=== PATIENT | male | born 1960 | race Caucasian/White ===

== ENCOUNTER 2018-07-10 06:01 | Day surgery (SDC) | payer BC ==
[~2018-07-10 06:01] MED LIST: Lactated Ringers 1,000 ML IV SCH
[2018-07-10] MEDS ORDERED: Ketamine HCl 50 MG/ML IV ONE (06:02)
[2018-07-10] MEDS ORDERED: DIPRIVAN 200 MG/20 ML IV ONE (06:02)
[2018-07-10 08:12] VITALS: PULSE 89; O2SAT 95
[2018-07-10 08:28] VITALS: BP 130/65
--- NOTE | 2018-07-10 09:41 | OP ---
SURGERY DATE/TIME: 07/10/201815 PREOPERATIVE DIAGNOSIS: Screening colonoscopy. POSTOPERATIVE DIAGNOSIS: Normal colon. PROCEDURE: Colonoscopy. SURGEON: Tulio Magallon M.D. ANESTHESIA: MAC by Gamaliel Zepeda CRNA. ESTIMATED BLOOD LOSS: None. SPECIMENS: None. DESCRIPTION OF PROCEDURE: After informed written consent was obtained, the patient was taken to the endoscopy suite. He underwent monitored anesthesia and digital rectal exam was performed and showing no internal lesions. The scope was then inserted into the rectum and sequentially the entire colonic mucosa was traversed. The level of cecum was reached and verified with direct visualization of ileocecal valve. Upon withdrawal careful mucosal inspection revealed no gross abnormalities. Prior to withdrawal retroflexion was performed and showed no internal lesions. The scope was removed and the patient was transferred to the recovery room in good condition.
== END 2018-07-10 08:37 | disposition home or self-care (01) ==
LOC: SDC 06:01
PROVIDERS: ATTEND Family Medicine
DX: Z12.11 Encounter for screening for malignant neoplasm of colon (principal); E11.9 Type 2 diabetes mellitus without complications; I10 Essential (primary) hypertension
CPT/HCPCS: 82962; J2704

== ENCOUNTER 2023-08-01 18:45 | Emergency (ER) | payer OTHER ==
[2023-08-01] MEDS: BABY ASPIRIN 81 MG CHEW PO ONE (18:50)
[2023-08-01] MEDS ORDERED: Nitrostat 0.4 MG (ED) SL ONE (18:52)
[2023-08-01] MEDS: Nitrostat 0.4 MG (ED) SL ONE (18:52)
[2023-08-01] MEDS ORDERED: BABY ASPIRIN 81 MG CHEW ONE (18:52)
[2023-08-01] MEDS ORDERED: MORPHINE SULFATE 4 MG INJ ONE ×2 (18:57→19:35)
[2023-08-01] MEDS ORDERED: Zofran 4 MG/2 ML VIAL ONE ×2 (18:57→20:07)
[2023-08-01] MEDS: Zofran 4 MG/2 ML VIAL IV ONE ×2 (18:58→20:15)
[2023-08-01] MEDS: MORPHINE SULFATE 4 MG INJ IV ONE ×2 (18:58→19:36)
[2023-08-01] MEDS: NITRO-BID 2% UD PACKETS TOP ONE (19:09)
[2023-08-01 19:15] VITALS: TEMP 97
--- NOTE | 2023-08-01 19:15 | ERPHSYRPT ---
- History of Present Illness Time Seen by Provider: 08/01/23 18:51 Historian: patient, family Exam Limitations: no limitations Physician History: 63 years old male with history of diabetes mellitus presented in the ER with sudden onset substernal chest pain moderate to severe sharp with radiation to the left arm with tingling sensation. Reports associated palpitations and mild shortness of breath. Patient denies any aggravating or relieving factors. It started almost an hour ago and is continuous. Patient is diaphoretic on presentation. EKG is sinus rhythm with no definite ST elevations. He is given aspirin, nitro and morphine, on reevaluation feeling better after few minutes. Chest pain workup is ordered. Denies any history of coronary artery disease. Aspirin Treatment Today: 81 mg x 1 Allergies/Adverse Reactions: No Known Drug Allergies Allergy (Verified 08/01/23 18:56) Home Medications: Atorvastatin Calcium [Lipitor] 20 mg PO DAILY 07/10/18 [History] Calcium Carbonate/Magnesium Ox [Super Nikita-Mag Tablet] 1 each PO DAILY 07/10/18 [History] Diclofenac Sodium 75 mg PO DAILY 07/10/18 [History] Empagliflozin [Jardiance] 10 mg PO DAILY 07/10/18 [History] Glucosam/Chondr/Collagn/Hyalur [Glucosamine & Chondroitin Cap] 1 each PO DAILY 07/10/18 [History] Loratadine [Alavert] 10 mg PO DAILY 07/10/18 [History] Losartan/Hydrochlorothiazide [Losartan-Hctz 100-12.5 mg Tab] 1 each PO DAILY 07/10/18 [History] Metformin HCl [Metformin ER Osmotic] 1,000 mg PO BID 07/10/18 [History] Metoprolol Succinate 50 mg PO DAILY 07/10/18 [History] Omeprazole 40 mg PO DAILY 07/10/18 [History] - Review of Systems Constitutional: No Symptoms Eyes: No Symptoms Ears, Nose, & Throat: No Symptoms Respiratory: Dyspnea Cardiac: Chest Pain, Palpitations Abdominal/Gastrointestinal: No Symptoms Genitourinary Symptoms: No Symptoms Musculoskeletal: No Symptoms Skin: No Symptoms Neurological: No Symptoms Psychological: No Symptoms Endocrine: No Symptoms Hematologic/Lymphatic: No Symptoms Immunological/Allergic: No Symptoms - Past Medical History Pertinent Past Medical History: Yes Neurological History: TIA ENT History: No Pertinent History Cardiac History: Hypertension Respiratory History: Sleep Apnea Endocrine Medical History: Diabetes Type II Musculoskeletal History: No Pertinent History GI Medical History: GERD History: No Pertinent History Psycho-Social History: No Pertinent History Male Reproductive Disorders: No Pertinent History - Past Surgical History Past Surgical History: Yes Neuro Surgical History: No Pertinent History Cardiac: No Pertinent History Respiratory: No Pertinent History Gastrointestinal: No Pertinent History Genitourinary: No Pertinent History Musculoskeletal: Orthopedic Surgery Male Surgical History: No Pertinent History - Social History Smoking Status: Former smoker Drug Use: none - Nursing Vital Signs Nursing Vital Signs: Initial Vital Signs Temperature 97.0 F 08/01/23 18:55 Pulse Rate 94 H 08/01/23 18:55 Respiratory Rate 25 H 08/01/23 18:55 Blood Pressure 169/106 08/01/23 18:55 O2 Sat by Pulse Oximetry 94 L 08/01/23 18:55 Pain Scale Pain Intensity 5 - Physical Exam General Appearance: mild distress, alert Eye Exam: PERRL/EOMI Ears, Nose, Throat Exam: normal ENT inspection Neck Exam: normal inspection, non-tender, supple, full range of motion Respiratory Exam: normal breath sounds, lungs clear Cardiovascular Exam: regular rate/rhythm, normal heart sounds Gastrointestinal/Abdomen Exam: soft, normal bowel sounds, No tenderness Back Exam: normal inspection Extremity Exam: normal inspection, normal range of motion Neurologic Exam: alert, oriented x 3, cooperative Skin Exam: normal color SpO2 Interpretation: normal SpO2: 97 O2 Delivery: Room Air - Course EKG Interpreted by Me: RATE (93), Sinus Rhythm, NORMAL AXIS, NORMAL INTERVALS, Non-specific ST Changes, Other (Acute EKG 1923. Rate 88 bpm, normal axis, normal intervals, nonspecific ST changes and anterolateral leads;;;; ) Rhythm Strip: Rate (EKG; 2100: 91 bpm, normal axis, normal intervals, slightly more pronounced ST changes suggesting some elevation in enterolateral leads.) Ordered Tests: Medication Summary Discontinued Medications Generic Name Dose Route Start Last Admin Trade Name Freq PRN Reason Stop Dose Admin Aspirin 324 mg 08/01/23 18:50 08/01/23 18:50 Aspirin 81 Mg Tab.Chew PO 08/01/23 18:51 324 mg STAT ONE Administration Aspirin Confirm 08/01/23 18:52 Aspirin 81 Mg Tab.Chew Administered 08/01/23 18:53 Dose 243 mg .ROUTE .STK-MED ONE Heparin Sodium (Beef Lung) 5,000 unit 08/01/23 22:04 08/01/23 22:11 Heparin 5000 Units/0.5 Ml 5,000 Unit/0.5 Ml Syr IV 08/01/23 22:05 5,000 unit STAT ONE Administration Heparin Sodium (Beef Lung) Confirm 08/01/23 22:11 Heparin 5000 Units/0.5 Ml 5,000 Unit/0.5 Ml Syr Administered 08/01/23 22:12 Dose 5,000 unit .ROUTE .STK-MED ONE Hydromorphone HCl 1 mg 08/01/23 20:49 08/01/23 20:55 Hydromorphone 1 Mg/1ml Inj IV 08/01/23 20:50 1 mg STAT ONE Administration Hydromorphone HCl Confirm 08/01/23 20:53 Hydromorphone 1 Mg/1ml Inj Administered 08/01/23 20:54 Dose 1 mg .ROUTE .STK-MED ONE Sodium Chloride 1,000 mls @ 125 mls/hr 08/01/23 19:30 08/01/23 20:00 Sodium Chloride 0.9% 1000 Ml IV 08/31/23 19:29 999 mls/hr .Q8H MACI Infusion Sodium Chloride 1,000 mls @ 999 mls/hr 08/01/23 20:19 08/01/23 20:24 Sodium Chloride 0.9% 1000 Ml IV 08/01/23 21:19 Not Given .Q1H1M STA Sodium Chloride 1,000 mls @ 999 mls/hr 08/01/23 20:45 08/01/23 21:00 Sodium Chloride 0.9% 1000 Ml IV 08/01/23 21:45 999 mls/hr .Q1H1M STA Administration Nitroglycerin/Dextrose 250 mls @ 1.5 mls/hr 08/01/23 21:43 08/01/23 22:06 Ntg 0.2mg/Ml In D5w Glass IV 08/31/23 21:42 5 mcg/min .Q24H PRN 1.5 mls/hr CHEST PAIN Administration Protocol 5 MCG/MIN Sodium Chloride Confirm 08/01/23 19:28 Sodium Chloride 0.9% 1000 Ml Administered 08/01/23 19:29 Dose 1,000 mls @ ud .ROUTE .STK-MED ONE Sodium Chloride Confirm 08/01/23 20:46 Sodium Chloride 0.9% 1000 Ml Administered 08/01/23 20:47 Dose 1,000 mls @ ud .ROUTE .STK-MED ONE Nitroglycerin/Dextrose Confirm 08/01/23 21:53 Ntg 0.2mg/Ml In D5w Glass Administered 08/01/23 21:54 Dose 250 mls @ ud IV .STK-MED ONE Nitroglycerin/Dextrose Confirm 08/01/23 22:04 Ntg 0.2mg/Ml In D5w Glass Administered 08/01/23 22:05 Dose 250 mls @ ud IV .STK-MED ONE Metoclopramide HCl 10 mg 08/01/23 21:48 08/01/23 21:59 Metoclopramide Hcl 10 Mg/2 Ml Vial IV 08/01/23 21:49 10 mg STAT ONE Administration Metoclopramide HCl Confirm 08/01/23 21:53 Metoclopramide Hcl 10 Mg/2 Ml Vial Administered 08/01/23 21:54 Dose 10 mg .ROUTE .STK-MED ONE Morphine Sulfate 4 mg 08/01/23 18:55 08/01/23 18:58 Morphine Sulfate 4 Mg/Ml Injection IV 08/01/23 18:56 4 mg STAT ONE Administration Morphine Sulfate Confirm 08/01/23 18:57 Morphine Sulfate 4 Mg/Ml Injection Administered 08/01/23 18:58 Dose 4 mg .ROUTE .STK-MED ONE Morphine Sulfate 4 mg 08/01/23 19:29 08/01/23 19:36 Morphine Sulfate 4 Mg/Ml Injection IV 08/01/23 19:30 4 mg STAT ONE Administration Morphine Sulfate Confirm 08/01/23 19:35 Morphine Sulfate 4 Mg/Ml Injection Administered 08/01/23 19:36 Dose 4 mg .ROUTE .STK-MED ONE Nitroglycerin 1 gm 08/01/23 18:50 08/01/23 19:09 Nitroglycerin 1 Gm Packet TOP 08/01/23 18:51 Not Given STAT ONE Nitroglycerin Confirm 08/01/23 18:52 Nitroglycerin 0.4 Mg (Ed) 0.4 Mg Tab.Subl Administered 08/01/23 18:53 Dose 0.4 mg SL .STK-MED ONE Nitroglycerin 0.4 mg 08/01/23 18:50 08/01/23 18:52 Nitroglycerin 0.4 Mg (Ed) 0.4 Mg Tab.Subl SL 08/01/23 18:51 0.4 mg STAT ONE Administration Ondansetron HCl 4 mg 08/01/23 18:55 08/01/23 18:58 Ondansetron Hcl 4 Mg/2 Ml Vial IV 08/01/23 18:56 4 mg STAT ONE Administration Ondansetron HCl Confirm 08/01/23 18:57 Ondansetron Hcl 4 Mg/2 Ml Vial Administered 08/01/23 18:58 Dose 4 mg .ROUTE .STK-MED ONE Ondansetron HCl Confirm 08/01/23 20:07 Ondansetron Hcl 4 Mg/2 Ml Vial Administered 08/01/23 20:08 Dose 4 mg .ROUTE .STK-MED ONE Ondansetron HCl 4 mg 08/01/23 20:27 08/01/23 20:15 Ondansetron Hcl 4 Mg/2 Ml Vial IV 08/01/23 20:28 4 mg STAT ONE Administration Lab/Rad Data: Laboratory Result Diagrams 08/01/23 19:00 08/01/23 19:00 Laboratory Results 08/01/23 08/01/23 08/01/23 Range/Units 22:12 21:27 20:00 WBC (4.0-10.5) x10^3/uL RBC (4.1-5.6) x10^6/uL Hgb (12.5-18.0) g/dL Hct (42-50) % MCV (78-100) fL MCH (26-32) pg MCHC (32-36) g/dL RDW (11.5-14.0) % Plt Count (150-450) x10^3/uL MPV (7.5-11.0) fL Gran % (36.0-66.0) % Immature Gran % (Auto) (0.00-0.4) % Nucleat RBC Rel Count (0.00-0.1) % Eos # (Auto) (0-0.5) x10^3/uL Immature Gran # (Auto) (0.00-0.03) x10^3u/L Absolute Lymphs (auto) (1.0-4.6) x10^3/uL Absolute Monos (auto) (0.0-1.3) x10^3/uL Absolute Nucleated RBC (0.00-0.01) x10^3u/L Lymphocytes % (24.0-44.0) % Monocytes % (0.0-12.0) % Eosinophils % (0.00-5.0) % Basophils % (0.0-0.4) % Absolute Granulocytes (1.4-6.9) x10^3/uL Basophils # (0-0.4) x10^3/uL PT (9.4-12.5) SECONDS INR (0.8-3.0) APTT (25.1-36.5) SECONDS D-Dimer (0.0-0.50) mg/L pO2/FiO2 Ratio % VBG pH (7.32-7.42) VBG pCO2 at Pat Temp (42-55) mm/Hg VBG pO2 at Pat Temp (25-40) mm/Hg VBG HCO3 (22-28) meq/L VBG O2 Sat (Buster) (95-100) VBG Base Excess (-2.0-2.0) VBG Hemoglobin VBG Carboxyhemoglobin (0.0-6.9) % T HGB POC Potassium (3.5-5.1) Sodium (135-145) mmol/L Potassium (3.5-5.1) mmol/L Chloride (98-107) mmol/L Carbon Dioxide (22-30) mmol/L Anion Gap (5-15) MEQ/L BUN (9-20) mg/dL Creatinine (0.66-1.25) mg/dL Estimated GFR ML/MIN Glucose (74-106) mg/dL POC Glucometer (74 to 106) mg/dL Lactic Acid 3.2 H (0.4-2.0) Calcium (8.4-10.2) mg/dL Total Bilirubin (0.2-1.3) mg/dL AST (17-59) U/L ALT (0-50) U/L Alkaline Phosphatase (38-126) U/L Troponin I 0.120 H* (0.000-0.033) ng/mL NT-Pro-B Natriuret Pep (<300) pg/mL Serum Total Protein (6.3-8.2) g/dL Albumin (3.5-5.0) g/dL Lipase 186 (23-300) U/L 08/01/23 08/01/23 08/01/23 Range/Units 19:55 19:55 19:00 WBC (4.0-10.5) x10^3/uL RBC (4.1-5.6) x10^6/uL Hgb (12.5-18.0) g/dL Hct (42-50) % MCV (78-100) fL MCH (26-32) pg MCHC (32-36) g/dL RDW (11.5-14.0) % Plt Count (150-450) x10^3/uL MPV (7.5-11.0) fL Gran % (36.0-66.0) % Immature Gran % (Auto) (0.00-0.4) % Nucleat RBC Rel Count (0.00-0.1) % Eos # (Auto) (0-0.5) x10^3/uL Immature Gran # (Auto) (0.00-0.03) x10^3u/L Absolute Lymphs (auto) (1.0-4.6) x10^3/uL Absolute Monos (auto) (0.0-1.3) x10^3/uL Absolute Nucleated RBC (0.00-0.01) x10^3u/L Lymphocytes % (24.0-44.0) % Monocytes % (0.0-12.0) % Eosinophils % (0.00-5.0) % Basophils % (0.0-0.4) % Absolute Granulocytes (1.4-6.9) x10^3/uL Basophils # (0-0.4) x10^3/uL PT (9.4-12.5) SECONDS INR (0.8-3.0) APTT (25.1-36.5) SECONDS D-Dimer (0.0-0.50) mg/L pO2/FiO2 Ratio 21.0 % VBG pH 7.55 H* (7.32-7.42) VBG pCO2 at Pat Temp 27 L (42-55) mm/Hg VBG pO2 at Pat Temp 52 H (25-40) mm/Hg VBG HCO3 23.6 (22-28) meq/L VBG O2 Sat (Buster) 86.6 L (95-100) VBG Base Excess 2.6 H (-2.0-2.0) VBG Hemoglobin 15.7 VBG Carboxyhemoglobin 2.5 (0.0-6.9) % T HGB POC Potassium 4.7 (3.5-5.1) Sodium (135-145) mmol/L Potassium (3.5-5.1) mmol/L Chloride (98-107) mmol/L Carbon Dioxide (22-30) mmol/L Anion Gap (5-15) MEQ/L BUN (9-20) mg/dL Creatinine (0.66-1.25) mg/dL Estimated GFR ML/MIN Glucose (74-106) mg/dL POC Glucometer (74 to 106) mg/dL Lactic Acid 4.0 H (0.4-2.0) Calcium (8.4-10.2) mg/dL Total Bilirubin (0.2-1.3) mg/dL AST (17-59) U/L ALT (0-50) U/L Alkaline Phosphatase (38-126) U/L Troponin I < 0.012 (0.000-0.033) ng/mL NT-Pro-B Natriuret Pep < 20.0 (<300) pg/mL Serum Total Protein (6.3-8.2) g/dL Albumin (3.5-5.0) g/dL Lipase (23-300) U/L 08/01/23 08/01/23 08/01/23 Range/Units 19:00 19:00 19:00 WBC 10.8 H (4.0-10.5) x10^3/uL RBC 4.99 (4.1-5.6) x10^6/uL Hgb 14.7 (12.5-18.0) g/dL Hct 42.3 (42-50) % MCV 84.8 (78-100) fL MCH 29.5 (26-32) pg MCHC 34.8 (32-36) g/dL RDW 13.0 (11.5-14.0) % Plt Count 320 (150-450) x10^3/uL MPV 10.9 (7.5-11.0) fL Gran % 43.8 (36.0-66.0) % Immature Gran % (Auto) 0.4 (0.00-0.4) % Nucleat RBC Rel Count 0.0 (0.00-0.1) % Eos # (Auto) 0.36 (0-0.5) x10^3/uL Immature Gran # (Auto) 0.04 H (0.00-0.03) x10^3u/L Absolute Lymphs (auto) 4.54 (1.0-4.6) x10^3/uL Absolute Monos (auto) 1.03 (0.0-1.3) x10^3/uL Absolute Nucleated RBC 0.00 (0.00-0.01) x10^3u/L Lymphocytes % 42.2 (24.0-44.0) % Monocytes % 9.6 (0.0-12.0) % Eosinophils % 3.3 (0.00-5.0) % Basophils % 0.7 (0.0-0.4) % Absolute Granulocytes 4.70 (1.4-6.9) x10^3/uL Basophils # 0.08 (0-0.4) x10^3/uL PT 9.8 (9.4-12.5) SECONDS INR 0.89 (0.8-3.0) APTT 23.2 L (25.1-36.5) SECONDS D-Dimer 0.32 (0.0-0.50) mg/L pO2/FiO2 Ratio % VBG pH (7.32-7.42) VBG pCO2 at Pat Temp (42-55) mm/Hg VBG pO2 at Pat Temp (25-40) mm/Hg VBG HCO3 (22-28) meq/L VBG O2 Sat (Buster) (95-100) VBG Base Excess (-2.0-2.0) VBG Hemoglobin VBG Carboxyhemoglobin (0.0-6.9) % T HGB POC Potassium (3.5-5.1) Sodium 139 (135-145) mmol/L Potassium 3.7 (3.5-5.1) mmol/L Chloride 102 (98-107) mmol/L Carbon Dioxide 17 L (22-30) mmol/L Anion Gap 23.3 H (5-15) MEQ/L BUN 24 H (9-20) mg/dL Creatinine 1.46 H (0.66-1.25) mg/dL Estimated GFR 53.7 ML/MIN Glucose 260 H (74-106) mg/dL POC Glucometer (74 to 106) mg/dL Lactic Acid (0.4-2.0) Calcium 10.9 H (8.4-10.2) mg/dL Total Bilirubin 0.90 (0.2-1.3) mg/dL AST 29 (17-59) U/L ALT 31 (0-50) U/L Alkaline Phosphatase 115 (38-126) U/L Troponin I (0.000-0.033) ng/mL NT-Pro-B Natriuret Pep (<300) pg/mL Serum Total Protein 9.0 H (6.3-8.2) g/dL Albumin 5.1 H (3.5-5.0) g/dL Lipase (23-300) U/L // Range/Units 18:51 WBC (4.0-10.5) x10^3/uL RBC (4.1-5.6) x10^6/uL Hgb (12.5-18.0) g/dL Hct (42-50) % MCV (78-100) fL MCH (26-32) pg MCHC (32-36) g/dL RDW (11.5-14.0) % Plt Count (150-450) x10^3/uL MPV (7.5-11.0) fL Gran % (36.0-66.0) % Immature Gran % (Auto) (0.00-0.4) % Nucleat RBC Rel Count (0.00-0.1) % Eos # (Auto) (0-0.5) x10^3/uL Immature Gran # (Auto) (0.00-0.03) x10^3u/L Absolute Lymphs (auto) (1.0-4.6) x10^3/uL Absolute Monos (auto) (0.0-1.3) x10^3/uL Absolute Nucleated RBC (0.00-0.01) x10^3u/L Lymphocytes % (24.0-44.0) % Monocytes % (0.0-12.0) % Eosinophils % (0.00-5.0) % Basophils % (0.0-0.4) % Absolute Granulocytes (1.4-6.9) x10^3/uL Basophils # (0-0.4) x10^3/uL PT (9.4-12.5) SECONDS INR (0.8-3.0) APTT (25.1-36.5) SECONDS D-Dimer (0.0-0.50) mg/L pO2/FiO2 Ratio % VBG pH (7.32-7.42) VBG pCO2 at Pat Temp (42-55) mm/Hg VBG pO2 at Pat Temp (25-40) mm/Hg VBG HCO3 (22-28) meq/L VBG O2 Sat (Buster) (95-100) VBG Base Excess (-2.0-2.0) VBG Hemoglobin VBG Carboxyhemoglobin (0.0-6.9) % T HGB POC Potassium (3.5-5.1) Sodium (135-145) mmol/L Potassium (3.5-5.1) mmol/L Chloride (98-107) mmol/L Carbon Dioxide (22-30) mmol/L Anion Gap (5-15) MEQ/L BUN (9-20) mg/dL Creatinine (0.66-1.25) mg/dL Estimated GFR ML/MIN Glucose (74-106) mg/dL POC Glucometer 266 H (74 to 106) mg/dL Lactic Acid (0.4-2.0) Calcium (8.4-10.2) mg/dL Total Bilirubin (0.2-1.3) mg/dL AST (17-59) U/L ALT (0-50) U/L Alkaline Phosphatase (38-126) U/L Troponin I (0.000-0.033) ng/mL NT-Pro-B Natriuret Pep (<300) pg/mL Serum Total Protein (6.3-8.2) g/dL Albumin (3.5-5.0) g/dL Lipase (23-300) U/L - Progress Progress: improved, re-examined Air Movement: good Progress Note: 08/01/23 21:55 63-year-old is evaluated in the ER for severe chest pain with diaphoresis. Initial EKG showed sinus rhythm with no obvious ST elevation but some nonspecific changes in the anterolateral leads. Has some T wave inversion in the inferior leads. Is given symptomatic treatment along with aspirin and nitro with some improvement and later on given Dilaudid but still have some discomfort. Patient did have couple of episodes of vomiting while in the ER with no belly tenderness. Has normal white count, initial troponin normal. Does have ESTEFANI with a baseline creatinine of 1 and today is 1.4 with a gap of 23 and bicarb of 17 and a glucose of 266. Patient has lactate of 4.0 and pH 7.55. Patient is given 2 L bolus and have obtained CTA chest/abdomen/pelvis which is negative for pulmonary embolism, no dissection/aneurysm, abdominal CT showed small hiatal hernia and some mesenteric node enlargement but no other acute findings. Patient has risk factors for CAD and heart score of> 4, do not have cardiology services here, discussed with patient and family the results of workup and they would like to go to place where there is a cardiology available. I have called [facility] transfer center, discussed with Dr. Martin, reviewed history, workup and agreed with transfer. Patient is also started on nitro drip. Complexity of problems addressed is acute severe complicated. Critical care time of more than 75 minutes. Complexity of data reviewed and analyzed is moderate to severe test ordered reviewed and analyzed and correlated clinically with a history and physical exam. Risk of complication and/or risk of morbidity/mortality of patient management is moderate to severe. EKGs were repeated couple of times with no significant changes from previous. 08/01/23 22:21 Has elevated second troponin 0.12. He is given heparin bolus after discussion with patient about risks/benefits/absolute contraindications. Patient is feeling better on reevaluation with nitro drip. Blood Culture(s) Obtained: Yes Antibiotics given: No Discussed with Dr.: Other (Dr. Martin [facility][1]) Will see patient in: ED Counseled pt/family regarding: lab results, diagnosis, rad results Medical Desision Making - Independent Historian Additional History obtained from: Spouse - Discussion of managment Care discussed with:: on-call "doc" Reviewed:: Test results Agreed on:: Treatment plan Will see patient: in ED - Diagnostic Testing Diagnostic test were ordered, analyzed, and reviewed by me: Yes Radiological Interpretation: Interpreted by me, Reviewed by me - Risk of complications The pt has a mod risk of morbidity or mortality based on: Need for prescription drug management The pt has a high risk of morbidity or mortality based on: Drug therapy requiring intensive monitoring for toxicity, Decision regarding hospitilization or escalation of hosp level of care - Departure Departure Disposition: Transfer Clinical Impression: NSTEMI (non-ST elevated myocardial infarction), ESTEFANI (acute kidney injury), Lactic acidosis Condition: Stable Critical Care Time: Yes Critical Care Time(excluding separately billable procedures): Critical 75-104 mins Referrals: JINA SANDHU MD [Primary Care Provider] - Follow up/PCP as directed
[2023-08-01 19:16] LABS: BASOPHIL % 0.7 % (0.0-0.4); Basophil (Absolute #) 0.08 x10^3/uL (0-0.4); Eosinophil % 3.3 % (0.00-5.0); Eosinophil (Absolute #) 0.36 x10^3/uL (0-0.5); Hematocrit 42.3 % (42-50); Hemoglobin 14.7 g/dL (12.5-18.0); IMMATURE GRAN # 0.04 x10^3u/L (0.00-0.03); IMMATURE GRAN % 0.4 % (0.00-0.4); Lymphocyte (Absolute #) 4.54 x10^3/uL (1.0-4.6); Lymphocytes % 42.2 % (24.0-44.0); Mean Cell Volume 84.8 fL (78-100); Mean Corpuscular Hemoglobin 29.5 pg (26-32); Mean Corpuscular Hgb Concent. 34.8 g/dL (32-36); Mean Platelet Volume 10.9 fL (7.5-11.0); Monocyte (Absolute #) 1.03 x10^3/uL (0.0-1.3); Monocytes % 9.6 % (0.0-12.0); Neutrophil % 43.8 % (36.0-66.0); Platelet Count 320 x10^3/uL (150-450); Red Blood Count 4.99 x10^6/uL (4.1-5.6); White Blood Count 10.8 x10^3/uL (4.0-10.5)
[2023-08-01] MEDS ORDERED: Sodium Chloride 0.9% 1000 ML 1,000 ML ONE ×2 (19:28→20:46)
[2023-08-01] MEDS: Sodium Chloride 0.9% 1000 ML 1,000 ML IV SCH (19:29)
[2023-08-01 19:30] LABS: ALBUMIN 5.1 g/dL (3.5-5.0); ANION GAP 23.3 MEQ/L (5-15); BILIRUBIN,TOTAL 0.9 mg/dL (0.2-1.3); Calcium 10.9 mg/dL (8.4-10.2); Creatinine 1 1.46 mg/dL (0.66-1.25); EST GLOMERULAR FILTRATION RATE 53.7 ML/MIN; Potassium 3.7 mmol/L (3.5-5.1)
[2023-08-01 19:32] LABS: D-DIMER QUANTITATIVE 0.32 mg/L (0.0-0.50); INR 0.89 (0.8-3.0); PROTIME 9.8 SECONDS (9.4-12.5); PTT 23.2 SECONDS (25.1-36.5)
[2023-08-01 19:42] LABS: NT PRO BNPII < 20.0 pg/mL (<300); TROPONIN < 0.012 ng/mL (0.000-0.033)
[2023-08-01 20:01] LABS: VBG BASE EXCESS 2.6 (-2.0-2.0); VBG CARBOXYHEMOGLOBIN 2.5 % T HGB (0.0-6.9); VBG HCO3- 23.6 meq/L (22-28); VBG HEMOGLOBIN 15.7; VBG O2 SATURATION 86.6 (95-100); VBG POTASSIUM 4.7 (3.5-5.1); VBG pH 7.55 (7.32-7.42)
[2023-08-01] MEDS: Sodium Chloride 0.9% 1000 ML 1,000 ML IV STA ×2 (20:24→21:00)
[2023-08-01] MEDS ORDERED: Hydromorphone 1 mg/ml Injection ONE (20:53)
[2023-08-01] MEDS: Hydromorphone 1 mg/ml Injection IV ONE (20:55)
[2023-08-01 21:15] VITALS: RESP 16
[2023-08-01] MEDS ORDERED: Reglan 10 MG/2 ML ONE (21:53)
[2023-08-01] MEDS ORDERED: Ntg 0.2MG/Ml in D5W GLASS*** 250 ML IV ONE ×2 (21:53→22:04)
[2023-08-01 21:55] VITALS: O2SAT 97
[2023-08-01] MEDS: Reglan 10 MG/2 ML IV ONE (21:59)
[2023-08-01] MEDS: Ntg 0.2MG/Ml in D5W GLASS*** 250 ML IV PRN (22:06)
[2023-08-01 22:09] VITALS: BP 156/98; PULSE 91
[2023-08-01] MEDS: HEPARIN 5000 UNITS/0.5 ML (HIGH RISK MED) IV ONE (22:11)
[2023-08-01] MEDS ORDERED: HEPARIN 5000 UNITS/0.5 ML (HIGH RISK MED) ONE (22:11)
--- NOTE | 2023-08-02 08:45 | XRAY ---
Indication: Chest pain. Pulmonary embolus. Aortic dissection. Multiple contiguous axial images obtained through the chest using 80 cc Isovue 370 contrast and PE protocol. Comparison: None Good opacification of the pulmonary arteries to includes the lobar and segmental branches. No pulmonary embolus. Heart not enlarged. Aorta is normal in course and caliber. A few tiny right hilar calcified nodes. No pathologic mediastinal/hilar lymphadenopathy. Small hiatal hernia. Lungs demonstrates 5 mm right middle lobe (image 24), 9 mm right lower lobe (image 26), 5 mm left lower lobe (image 26), and 3 mm left upper lobe (image 13) noncalcified nodules. Nodules are indeterminant. Mild bilateral dependent atelectasis. No infiltrate, effusion, or pneumothorax. Bony thorax intact with mild degenerative changes throughout the spine. CT abdomen/pelvis reported separately. Impression: 1. Negative pulmonary embolus. No acute cardiopulmonary abnormalities. 2. Indeterminant bilateral noncalcified micronodules. Outside comparison studies recommended if available. If not, follow-up per Fleischner guidelines. 3. Chronic findings including hiatal hernia, degenerative spondylosis, and old granulomatous disease.
--- NOTE | 2023-08-02 08:53 | XRAY ---
Indication: Chest pain. Comparison: November 02, 2016 Portable chest remains inflated and clear. Heart and mediastinal structures within normal limits. Bony thorax intact again with mild degenerative changes and minimal dextroscoliosis. Impression: Continued nonacute chest with chronic bony findings.
--- NOTE | 2023-08-02 09:05 | XRAY ---
Indication: Abdomen pain and nausea. Multiple contiguous axial images obtained through the abdomen and pelvis using 80 cc Isovue 370 contrast. Comparison: None CT chest reported separately. Noncontrasted stomach and bowel loops appear nonobstructed with normal appendix. There are multiple enlarged mesenteric root lymph nodes, largest 2.0 x 3.2 cm interposed between portal vein and IVC. Multiple tiny periaortic nodes, none pathologically enlarged. Spleen is enlarged measuring 14.2 cm. No free fluid/air. Remaining liver, gallbladder, pancreas, spleen, adrenal glands, kidneys, ureters, bladder, and aorta are unremarkable. Osseous structures intact with minimal degenerative changes throughout the spine. Small fatty right inguinal hernia. No pathologic inguinal lymphadenopathy. Impression: 1. Mesenteric root lymphadenopathy. Rule out primary versus metastatic malignancy. 2. Incidental splenomegaly, multilevel degenerative spondylosis, and fatty right inguinal hernia. 3. Remaining CT abdomen/pelvis with contrast exam is negative.
== END 2023-08-01 22:30 | disposition short-term general hospital (02) ==
LOC: ED 18:45
DX: I21.4 Non-ST elevation (NSTEMI) myocardial infarction (principal); N17.9 Acute kidney failure, unspecified; E87.20 Acidosis, unspecified; R07.9 Chest pain, unspecified; R00.2 Palpitations; R06.02 Shortness of breath; I10 Essential (primary) hypertension; E11.9 Type 2 diabetes mellitus without complications; Z79.84 Long term (current) use of oral hypoglycemic drugs; Z79.899 Other long term (current) drug therapy
CPT/HCPCS: 36000; 36415; 71045; 71260; 74177; 80053; 82805; 82947; 83605; 83690; 83880; 84484; 85025; 85379; 85610; 85730; 87040; 93005; 93041; 96374; 96375; 99285; 99291; 99292; J1170; J1644; J2270; J2405; A9270-GY

== ENCOUNTER 2023-08-16 10:35 | Emergency (ER) | payer OTHER ==
[2023-08-16 10:58] VITALS: TEMP 98.1
[2023-08-16 11:27] LABS: ANION GAP 18.1 MEQ/L (5-15); Calcium 10.1 mg/dL (8.4-10.2); Creatinine 1 1.91 mg/dL (0.66-1.25); EST GLOMERULAR FILTRATION RATE 38.9 ML/MIN; Potassium 5.5 mmol/L (3.5-5.1)
[2023-08-16] MEDS ORDERED: Sodium Chloride 0.9% 1000 ML 1,000 ML ONE (12:15)
[2023-08-16] MEDS: Sodium Chloride 0.9% 1000 ML 1,000 ML IV STA (12:16)
[2023-08-16 12:18] LABS: BASOPHIL % 0.7 % (0.2-1.2); Basophil (Absolute #) 0.06 x10^3/uL (0.01-0.08); Eosinophil % 4.8 % (0.8-7.0); Hematocrit 40.1 % (40.1-51.0); Hemoglobin 13.3 g/dL (13.7-17.5); IMMATURE GRAN # 0.03 x10^3u/L (0.001-0.031); IMMATURE GRAN % 0.4 % (0.001-0.429); Lymphocyte (Absolute #) 1.42 x10^3/uL (1.32-3.57); Lymphocytes % 17.2 % (21.8-53.1); Mean Cell Volume 88.1 fL (79.0-92.2); Mean Corpuscular Hemoglobin 29.2 pg (25.7-32.2); Mean Corpuscular Hgb Concent. 33.2 g/dL (32.3-36.5); Mean Platelet Volume 10.5 fL (9.4-12.4); Monocyte (Absolute #) 0.75 x10^3/uL (0.30-0.82); Monocytes % 9.1 % (5.3-12.2); Neutrophil % 67.8 % (34.0-67.9); Platelet Count 377 x10^3/uL (163-337); Red Blood Count 4.55 x10^6/uL (4.63-6.08); White Blood Count 8.3 x10^3/uL (4.23-9.07)
[2023-08-16 12:25] LABS: ADD URINE CULTURE? NO (NO); Appearance Clear (Clear); Bacteria None Seen /HPF (None Seen); Bilirubin Negative (Negative); Blood Negative (Negative); Epithelial Cells None Seen /HPF (None Seen); Glucose, Urine 500 mg/dL (Negative); Hyaline Casts NONE SEEN /LPF (0-2); Ketones Negative (Negative); Leukocyte Esterase Negative (Negative); Nitrite Negative (Negative); Protein,Urine Dip Trace (Negative); RBC 0-2 /HPF (0-5); Urobilinogen 0.2 mg/dL (0.2); WBC 0-2 /HPF (0-5)
[2023-08-16 15:01] VITALS: BP 120/80; PULSE 67; RESP 18; O2SAT 96
--- NOTE | 2023-08-16 15:15 | ERPHSYRPT ---
- History of Present Illness Time Seen by Provider: 08/16/23 10:46 Source: patient Exam Limitations: no limitations Patient Subjective Stated Complaint: C/O K+ level 6.3. Patient indicates that he went to see Dr. Sandhu yesterday for a routine follow-up appointment following an NV on 08/01/23. Lab draw from yesterday indicates at K+ level of 6.3. Triage Nursing Assessment: Patient ambulated back to ER without difficulties. No SOB. He is alert and oriented. Life vest in place. Skin tone normal. Physician History: Patient is here with abnormal lab values. Patient recently had an NSTEMI and was discharged from [facility] on 08/07/2023. Patient recently seen in the [place] emergency department, diagnosed with NSTEMI, transferred to [facility]. There he underwent heart catheterization. Per the patient, heart catheterization was unsuccessful he is now wearing a LifeVest. Patient had routine lab work done yesterday with his PCP, Dr. Sandhu at that point in time he was found to have hyperkalemia and elevated creatinine. Therefore, he arrives to the emergency department today for repeat lab check. He is otherwise asymptomatic, is not having any chest pain, shortness of breath, nausea, vo miting. No other anginal equivalents. States he has been doing well since his NV. States that he has not seen his media consultant who is Dr. Vito Jain. Allergies/Adverse Reactions: No Known Drug Allergies Allergy (Verified 08/16/23 10:49) Home Medications: Aspirin EC 81 mg [Ecotrin 81 mg] 81 mg PO DAILY 08/16/23 [History] Atorvastatin Calcium [Lipitor] 80 mg PO HS 08/16/23 [History] Carvedilol 12.5 mg [Coreg 12.5 mg] 12.5 mg PO BID 08/16/23 [History] Clopidogrel Bisulfate [Plavix] 75 mg PO DAILY 08/16/23 [History] Dapagliflozin Propanediol [Farxiga] 10 mg PO DAILY 08/16/23 [History] Metformin HCl 500 mg [Glucophage 500 MG] 1,000 mg PO BID 08/16/23 [History] Hx Tetanus, Diphtheria Vaccination/Date Given: Yes Hx Influenza Vaccination/Date Given: No Hx Pneumococcal Vaccination/Date Given: No Immunizations Up to Date: Yes Travel Risk - International Travel Have you traveled outside of the country in past 3 weeks: No - Emerging Infectious Disease Are you exhibiting symptoms associated with any current EIDs: No - Past Medical History Pertinent Past Medical History: Yes Neurological History: TIA ENT History: No Pertinent History Cardiac History: High Cholesterol, Hypertension, Myocardial Infarction (NV) Respiratory History: Sleep Apnea Endocrine Medical History: Diabetes Type II Musculoskeletal History: No Pertinent History GI Medical History: GERD History: No Pertinent History Psycho-Social History: No Pertinent History Male Reproductive Disorders: No Pertinent History Other Medical History: Skin CA - Past Surgical History Past Surgical History: Yes Neuro Surgical History: No Pertinent History Cardiac: Cardiac Catheterization Respiratory: No Pertinent History Gastrointestinal: No Pertinent History Genitourinary: No Pertinent History Musculoskeletal: Orthopedic Surgery Male Surgical History: No Pertinent History Other Surgical History: knee orthoscopics, skin CA removals from head - Social History Smoking Status: Former smoker Exposure to second hand smoke: No Drug Use: none - Social Determinants of Health Will the patient participate in the screening: Yes Do you worry about a steady place to live?: No Do you have any problems with any of the following?: No known problems In the past 12 months,have you had to go without utilities?: No Transportation Issues: No Has anyone in your support network made you feel unsafe?: No Have you or anyone in your house had to go without enough: No - Nursing Vital Signs Nursing Vital Signs: Initial Vital Signs Temperature 98.1 F 08/16/23 10:36 Pulse Rate 89 08/16/23 10:36 Respiratory Rate 18 08/16/23 10:36 Blood Pressure 102/64 08/16/23 10:36 O2 Sat by Pulse Oximetry 98 08/16/23 10:36 Pain Scale Pain Intensity 0 - Physical Exam SpO2 Interpretation: normal SpO2: 96 Comments: 08/16/23 15:12 Review of Systems Constitutional: Negative for fever. HENT: Negative for congestion. Respiratory: Negative for shortness of breath. Cardiovascular: Negative for chest pain. Gastrointestinal: Negative for abdominal pain. Genitourinary: Negative for dysuria. Musculoskeletal: Negative for back pain. Skin: Negative for rash. Neurological: Negative for headaches. Psychiatric/Behavioral: Negative for behavioral problems. All other systems reviewed and are negative. Physical Exam Vitals signs and nursing note reviewed. Constitutional: Appearance: Patient is well-developed. HENT: Head: Normocephalic and atraumatic. Eyes: Conjunctiva/sclera: Conjunctivae normal. Neck: Musculoskeletal: Normal range of motion. Trachea: No tracheal deviation. Cardiovascular: Rate and Rhythm: Normal rate. Wearing LifeVest Pulmonary: Effort: Pulmonary effort is normal. No respiratory distress. Abdominal: Palpations: Abdomen is soft. Musculoskeletal: General: No deformity. Skin: General: Skin is warm and dry. Neurological/ Psychiatric: Mental Status: Mental status, behavior, interaction with environment is appropriate for patient's age and condition - Course Nursing assessment & vital signs reviewed: Yes EKG Interpreted by Me: Sinus Rhythm (Sinus rhythm, rate of 82, WA interval 151 QRS 91 QTc 364, nonspecific ST changes without STEMI) Ordered Tests: Active Orders 24 hr Category Date Time Status EKG-ER Only STAT Care 08/16/23 11:55 Active IV Insertion STAT Care 08/16/23 11:55 Active BMP Stat Lab 08/16/23 11:08 Completed CBC W DIFF Stat Lab 08/16/23 11:08 Completed LIPASE Stat Lab 08/16/23 11:08 Completed Lactic Acid Stat Lab 08/16/23 11:55 Completed Lactic Acid Stat Lab 08/16/23 14:07 Received NT PRO BNPII Stat Lab 08/16/23 11:08 Completed TROPONIN Q4H Lab 08/16/23 11:08 Completed TROPONIN Q4H Lab 08/16/23 16:00 Ordered TROPONIN Q4H Lab 08/16/23 20:00 Ordered UA W/RFX UR CULTURE Stat Lab 08/16/23 11:59 Completed Medication Summary Discontinued Medications Generic Name Dose Route Start Last Admin Trade Name Freq PRN Reason Stop Dose Admin Sodium Chloride 1,000 mls @ 999 mls/hr 08/16/23 11:55 08/16/23 13:18 Sodium Chloride 0.9% 1000 Ml IV 08/16/23 12:55 Infused .Q1H1M STA Infusion Sodium Chloride Confirm 08/16/23 12:15 Sodium Chloride 0.9% 1000 Ml Administered 08/16/23 12:16 Dose 1,000 mls @ ud .ROUTE .STK-MED ONE Lab/Rad Data: Laboratory Result Diagrams 08/16/23 11:08 08/16/23 11:08 Laboratory Results 08/16/23 08/16/23 08/16/23 Range/Units 11:59 11:55 11:08 WBC (4.23-9.07) x10^3/uL RBC (4.63-6.08) x10^6/uL Hgb (13.7-17.5) g/dL Hct (40.1-51.0) % MCV (79.0-92.2) fL MCH (25.7-32.2) pg MCHC (32.3-36.5) g/dL RDW (11.6-14.4) % Plt Count (163-337) x10^3/uL MPV (9.4-12.4) fL Gran % (34.0-67.9) % Immature Gran % (Auto) (0.001-0.429) % Nucleat RBC Rel Count (0.00-0.2) % Eos # (Auto) (0.04-0.54) x10^3/uL Immature Gran # (Auto) (0.001-0.031) x10^3u/L Absolute Lymphs (auto) (1.32-3.57) x10^3/uL Absolute Monos (auto) (0.30-0.82) x10^3/uL Absolute Nucleated RBC (0.00-0.012) x10^3u/L Lymphocytes % (21.8-53.1) % Monocytes % (5.3-12.2) % Eosinophils % (0.8-7.0) % Basophils % (0.2-1.2) % Absolute Granulocytes (1.78-5.38) x10^3/uL Basophils # (0.01-0.08) x10^3/uL Sodium (135-145) mmol/L Potassium (3.5-5.1) mmol/L Chloride (98-107) mmol/L Carbon Dioxide (22-30) mmol/L Anion Gap (5-15) MEQ/L BUN (9-20) mg/dL Creatinine (0.66-1.25) mg/dL Estimated GFR ML/MIN Glucose (74-106) mg/dL Lactic Acid 4.1 H (0.4-2.0) Calcium (8.4-10.2) mg/dL Troponin I 0.273 H* (0.000-0.033) ng/mL NT-Pro-B Natriuret Pep (<300) pg/mL Lipase (23-300) U/L Urine Color Yellow (Yellow) Urine Appearance Clear (Clear) Urine pH 8.0 (4.6-8.0) Ur Specific [place] 1.020 (1.005-1.030) Urine Protein Trace A (Negative) Urine Glucose (UA) 500 A (Negative) mg/dL Urine Ketones Negative (Negative) Urine Blood Negative (Negative) Urine Nitrite Negative (Negative) Urine Bilirubin Negative (Negative) Urine Urobilinogen 0.2 (0.2) mg/dL Ur Leukocyte Esterase Negative (Negative) U Hyaline Cast (Auto) NONE SEEN (0-2) /LPF Urine Microscopic RBC 0-2 (0-5) /HPF Urine Microscopic WBC 0-2 (0-5) /HPF Ur Epithelial Cells None Seen (None Seen) /HPF Urine Bacteria None Seen (None Seen) /HPF Urine Culture Reflexed NO (NO) 08/16/23 08/16/23 Range/Units 11:08 11:08 WBC 8.3 (4.23-9.07) x10^3/uL RBC 4.55 L (4.63-6.08) x10^6/uL Hgb 13.3 L (13.7-17.5) g/dL Hct 40.1 (40.1-51.0) % MCV 88.1 (79.0-92.2) fL MCH 29.2 (25.7-32.2) pg MCHC 33.2 (32.3-36.5) g/dL RDW 13.0 (11.6-14.4) % Plt Count 377 H (163-337) x10^3/uL MPV 10.5 (9.4-12.4) fL Gran % 67.8 (34.0-67.9) % Immature Gran % (Auto) 0.4 (0.001-0.429) % Nucleat RBC Rel Count 0.0 (0.00-0.2) % Eos # (Auto) 0.40 (0.04-0.54) x10^3/uL Immature Gran # (Auto) 0.03 (0.001-0.031) x10^3u/L Absolute Lymphs (auto) 1.42 (1.32-3.57) x10^3/uL Absolute Monos (auto) 0.75 (0.30-0.82) x10^3/uL Absolute Nucleated RBC 0.00 (0.00-0.012) x10^3u/L Lymphocytes % 17.2 L (21.8-53.1) % Monocytes % 9.1 (5.3-12.2) % Eosinophils % 4.8 (0.8-7.0) % Basophils % 0.7 (0.2-1.2) % Absolute Granulocytes 5.60 H (1.78-5.38) x10^3/uL Basophils # 0.06 (0.01-0.08) x10^3/uL Sodium 134 L (135-145) mmol/L Potassium 5.5 H (3.5-5.1) mmol/L Chloride 100 (98-107) mmol/L Carbon Dioxide 21 L (22-30) mmol/L Anion Gap 18.1 H (5-15) MEQ/L BUN 38 H (9-20) mg/dL Creatinine 1.91 H (0.66-1.25) mg/dL Estimated GFR 38.9 ML/MIN Glucose 252 H (74-106) mg/dL Lactic Acid (0.4-2.0) Calcium 10.1 (8.4-10.2) mg/dL Troponin I (0.000-0.033) ng/mL NT-Pro-B Natriuret Pep 805 (<300) pg/mL Lipase 424 H (23-300) U/L Urine Color (Yellow) Urine Appearance (Clear) Urine pH (4.6-8.0) Ur Specific [place] (1.005-1.030) Urine Protein (Negative) Urine Glucose (UA) (Negative) mg/dL Urine Ketones (Negative) Urine Blood (Negative) Urine Nitrite (Negative) Urine Bilirubin (Negative) Urine Urobilinogen (0.2) mg/dL Ur Leukocyte Esterase (Negative) U Hyaline Cast (Auto) (0-2) /LPF Urine Microscopic RBC (0-5) /HPF Urine Microscopic WBC (0-5) /HPF Ur Epithelial Cells (None Seen) /HPF Urine Bacteria (None Seen) /HPF Urine Culture Reflexed (NO) - Progress Progress: improved Progress Note: 08/16/23 15:17 Differential diagnosis includes: PNA, STEMI, NSTEMI, other infection, musculoskeletal pain, pneumothorax - We'll obtain basic labs, fluids, EKG, troponin, chest x-ray - EKG shows no ST changes - my read - O2 saturations consistently greater than 95%. - CXR shows no pneumonia, pneumothorax - my read Patient found to have elevated lactic acid, hyperkalemia, ESTEFANI, elevated troponin. Elevated troponin could be from previous NV event. We do not have access to [facility] records. Discussed over the phone with the patient's PCP, Dr. Sandhu. We felt patient most likely would benefit from admission to hospital. Discussed with family and patient. We made decision to transfer patient back to [facility] where his original heart catheterization was done and he was discharged from 9 days ago. I discussed over the phone with on-call ER physician, Dr. Pardeep Monique. He did accept the patient for admission. Patient remained stable in the emergency department without further intervention prior to transfer. Counseled pt/family regarding: lab results, diagnosis, need for follow-up, rad r esults Medical Desision Making - Independent Historian Additional History obtained from: Spouse - External Record(s) Reviewed Records reviewed as a part of evaluation & management: Inpatient, Discharge Summary - Discussion of managment Care discussed with:: PCP Reviewed:: Test results, Need for additional workup Agreed on:: Treatment plan, decision to admit Will see patient: in hospital - Diagnostic Testing Diagnostic test were ordered, analyzed, and reviewed by me: Yes Radiological Interpretation: Interpreted by me - Risk of complications Low Risk: Low risk of morbidity from additional dx testing or treatment - Departure Departure Disposition: Transfer Clinical Impression: ESTEFANI (acute kidney injury), Hyperkalemia, Elevated troponin, Lactic acidosis Condition: Stable Critical Care Time: No Referrals: JINA SANDHU MD [Primary Care Provider] - Follow up/PCP as directed
== END 2023-08-16 15:18 | disposition short-term general hospital (02) ==
LOC: ED 10:35
DX: N17.9 Acute kidney failure, unspecified (principal); E87.5 Hyperkalemia; R79.89 Other specified abnormal findings of blood chemistry; E87.20 Acidosis, unspecified; E78.5 Hyperlipidemia, unspecified; I10 Essential (primary) hypertension; E11.9 Type 2 diabetes mellitus without complications; Z79.84 Long term (current) use of oral hypoglycemic drugs; Z79.899 Other long term (current) drug therapy
CPT/HCPCS: 36000; 36415; 80048; 81001; 83605; 83690; 83880; 84484; 85025; 93005; 99284